=== PATIENT | female | born 1940 | race African-American/Black ===

== ENCOUNTER 2021-08-30 12:13 | Emergency (ER) | payer OTHER, MEDICARE ==
[~2021-08-30] VITALS: Ht 175.3 cm; Wt 89.0 kg
[2021-08-30 12:22] VITALS: BP 172/80
[2021-08-30 16:24] LABS: CLARITY URINE CLEAR (CLEAR); COLOR URINE YELLOW (YELLOW); KETONES URINE TRACE (NEGATIVE); LEUKOCYTE ESTERASE URINE NEGATIVE (NEGATIVE); NITRITE URINE NEGATIVE (NEGATIVE); OCCULT BLOOD URINE NEGATIVE (NEGATIVE); PROTEIN URINE NEGATIVE (NEGATIVE); SPECIFIC GRAVITY URINE 1.018 (1.005-1.030)
== END 2021-08-30 18:29 | disposition home or self-care (01) ==
LOC: ER 12:13
DX: M79.662 Pain in left lower leg (principal); I10 Essential (primary) hypertension; M19.90 Unspecified osteoarthritis, unspecified site; Z86.711 Personal history of pulmonary embolism; Z79.01 Long term (current) use of anticoagulants
CPT/HCPCS: 81003; 82962; 93005; 93971; 99285

== ENCOUNTER → 2025-05-11 | Day surgery (SDC) | payer MEDICARE ==
[~2025-05-11] VITALS: Ht 167.6 cm; Wt 79.4 kg
[~2025-05-11] MED LIST: APIX2.5T PO; CHOL125C7 PO; DEXAMETHASONE 4MG/ML 1ML VIAL IV PRN; ETOMIDATE 2MG/ML 10ML VIAL IV ONE; FENTANYL CITRATE/PF 50MCG/ML 2ML VIAL ONE; FLUCONAZOLE 100MG/50ML in BAG IV NR; FOLI-43 PO; GLYCOPYRROLATE 0.2 MG/ML 2ML VIAL IV PRN; HYDROMORPHONE HCL/PF 1MG/ML INJ IV PRN; LABETALOL 5MG/ML 4ML INJ IV PRN; LEVE500T19 PO; LEVO50TA8 PO; MAXZIDE PO; METH2.5T PO; MIRA50TA PO; MONT-46 PO; ONDANSETRON HCL 4MG/2ML INJ IV PRN; TRIAMTERENE/HCTZ PO; VITA1CAP16 PO
[2025-05-11 06:09] LABS: CLARITY URINE CLEAR (CLEAR); COLOR URINE YELLOW (YELLOW); GLUCOSE URINE NEGATIVE (NEGATIVE); KETONES URINE NEGATIVE (NEGATIVE); LEUKOCYTE ESTERASE URINE 2+ (NEGATIVE); NITRITE URINE NEGATIVE (NEGATIVE); OCCULT BLOOD URINE 3+ (NEGATIVE); PROTEIN URINE 1+ (NEGATIVE); SPECIFIC GRAVITY URINE 1.014 (1.005-1.030); UROBILINOGEN URINE 0.2 E.U./dL (0.2-1.0)
[2025-05-11] MEDS: LACTATED RINGERS 1,000 ML IV SCH (06:47)
[2025-05-11 07:19] LABS: SQUAMOUS EPITHELIAL CELL URINE 2+ /lpf (RARE/1+)
[2025-05-11 07:21] LABS: BACTERIA URINE 1+
[2025-05-11 07:23] LABS: RBC URINE 25-50 /hpf (0-2)
[2025-05-11 07:27] LABS: YEAST URINE 1+
[2025-05-11 09:19] VITALS: BP 164/58; PULSE 57; RESP 16
[2025-05-11] MEDS: KETOROLAC 15MG/ML VIAL IV NR (09:19)
[2025-05-11] MEDS: HYDRALAZINE 20MG/ML VIAL IV PRN (09:33)
== END | disposition home or self-care (01) ==
LOC: OR 05:33
PROVIDERS: ATTEND Urology
DX: N20.2 Calculus of kidney with calculus of ureter (principal); I10 Essential (primary) hypertension; M06.9 Rheumatoid arthritis, unspecified; Z83.3 Family history of diabetes mellitus; Z82.3 Family history of stroke; Z98.890 Other specified postprocedural states; Z79.899 Other long term (current) drug therapy
CPT/HCPCS: 50590; 81003; 82962; 71045; J1885; J3010; J3490; J1450; J0360

== ENCOUNTER → 2025-06-22 | Day surgery (SDC) | payer MEDICAID ==
[~2025-06-22] VITALS: Ht 167.6 cm; Wt 78.9 kg
[~2025-06-22] MED LIST changes: +ACETAMINOPHEN 1,000MG/100ML PREMIX IV PRN; -DEXAMETHASONE 4MG/ML 1ML VIAL IV PRN; +FAMOTIDINE 20MG/2ML VIAL IV ONE; +FAMOTIDINE 20MG/2ML VIAL IV PRN; -FLUCONAZOLE 100MG/50ML in BAG IV NR; -GLYCOPYRROLATE 0.2 MG/ML 2ML VIAL IV PRN; +HYDRALAZINE 20MG/ML VIAL IV PRN; -MAXZIDE PO; +MECL-299 PO; +MEPERIDINE HCL/PF 25MG/ML CPJ IV PRN; +MIDAZOLAM HCL 2 MG/2 ML VIAL ONE; +NITR100C PO; +OXYB-52 PO; +PROPOFOL 200MG/20ML VIAL IV ONE
[2025-06-22] MEDS: LACTATED RINGERS 1,000 ML IV SCH (08:01)
== END | disposition home or self-care (01) ==
LOC: OR 06:36
PROVIDERS: ATTEND Urology
DX: N20.2 Calculus of kidney with calculus of ureter (principal); I10 Essential (primary) hypertension; M06.9 Rheumatoid arthritis, unspecified; Z82.3 Family history of stroke; Z83.3 Family history of diabetes mellitus; Z79.899 Other long term (current) drug therapy; Z98.890 Other specified postprocedural states
CPT/HCPCS: 82360; 82962; 88300; C1769; J1308; J2250; J2704; J3010; J3490; C1889; C2617